=== PATIENT | female | born 1985 | race American Indian/Alaskan Native ===

== ENCOUNTER 2016-10-17 06:45 | Emergency (ER) | payer SELFPAY ==
[2016-10-17 07:03] VITALS: BP 117/80
[2016-10-17 07:37] LABS: Basophils % (Auto) 0.5 % (0.0-1.8); Hematocrit 36.9 % (30.3-42.9); Hemoglobin 12.7 gm/dl (10.1-14.3); Mean Corpuscular HGB Conc 34 % (30-34); Mean Corpuscular Hemoglobin 28 pg (28-32); Mean Corpuscular Volume 82 fl (79-97); Platelet Count 223 K/mm3 (140-440); Red Blood Count 4.51 M/mm3 (3.65-5.03); Red Cell Distribution Width 13.9 % (13.2-15.2); White Blood Count 8.4 K/mm3 (4.5-11.0)
[2016-10-17 08:07] LABS: Bacteria,Urine 1+ /HPF (Negative); Bilirubin,Urine NEG (Negative); Blood,Urine NEG (Negative); Ketones,Urine NEG (Negative); Leukocyte Esterase,Urine NEG (Negative); Nitrite,Urine NEG (Negative); Protein,Urine <15 mg/dL mg/dL (Negative); Urobilinogen,Urine < 2.0 mg/dL (<2.0)
== END 2016-10-17 11:10 | disposition left against medical advice (07) ==
LOC: ED 06:45
DX: N93.9 Abnormal uterine and vaginal bleeding, unspecified (principal); Z53.21 Procedure and treatment not carried out due to patient leaving prior to being seen by health care provider
CPT/HCPCS: 36415; 81001; 84702; 85025; 86850; 86900; 86901

== ENCOUNTER 2020-06-25 19:33 | Inpatient (IN) | payer OTHER ==
--- NOTE | 2020-06-25 20:56 | History and Physical Report ---
History of Present Illness Date of examination: 06/25/20 Date of admission: 06/25/2020 Chief complaint: Sent here to be delivered [facility] due to uncontrolled blood sugars/gestational diabetes at term. History of present illness: 34 year old female was sent to L&D for delivery [place] [facility] [place] due to gestational diabetes with uncontrolled blood sugars. Patient received care at [facility] and records have been requested. EDC 07/02/2020 per [facility] records. Complications during this : gestational diabetes (diet controlled per patient but poorly controlled per [facility] note), previous section in 2018 for breech presentation. labs have been requested. Past History Past Medical History: other (obesity, gestational diabetes) Past Surgical History: cholecystectomy, section, other (elective ) [facility] History: denies: chlamydia, gonorrhea, hepatitis B, hepatitis C, herpes, HIV, syphilis, trichomonas Family/Genetic History: hypertension, cancer Social history: lives with family, full code. denies: smoking, alcohol abuse, prescription drug abuse, IV drug use - Obstetrical History Expected Date of Delivery: 07/02/20 Actual Gestation: 39 Week(s) 0 Day(s) : 3 Para: 1 Hx # Term Pregnancies: 1 Number of Pregnancies: 0 Spontaneous Abortions: 0 Induced : 1 Number of Living Children: 1 Medications and Allergies Allergies Allergy/AdvReac Type Severity Reaction Status Date / Time No Known Allergies Allergy Unverified 10/17/16 07:03 Home Medications Medication Instructions Recorded Confirmed Last Taken Type Ibuprofen [Motrin 600 MG tab] 600 mg PO Q8H PRN #30 tablet 06/19/17 Unknown Rx Multivitamin with Iron 1 each PO DAILY #30 tablet 06/19/17 Unknown Rx [Multivitamins with Iron] Vit No.130/Iron/Folic 1 tab PO QDAY 06/19/17 06/19/17 06/18/17 23:00 History [ Tablet] oxyCODONE /ACETAMINOPHEN [Percocet 1 tab PO Q6HR PRN #30 tablet 06/19/17 Unknown Rx 5/325] Active Meds: Active Medications Citric Acid/Sodium Citrate (Bicitra Oral Liqd 30ml) 30 ml PO ONCE ONE Stop: 06/25/20 20:50 Famotidine (Famotidine 20 Mg/2 Ml Inj) 20 mg IV ONCE ONE Stop: 06/25/20 20:50 Lactated Ringer's (Lactated Ringers) 1,000 mls @ 2,250 mls/hr IV PREOP MICHAEL Stop: 06/26/20 21:27 Oxytocin/Sodium Chloride (Pitocin/Ns 30 Unit/500ml) 30 units in 500 mls @ 0 mls/hr IV TITR MICHAEL; Protocol Cefazolin Sodium (Ancef/Sterile Water 2 Gm/20 Ml) 2 gm in 20 mls @ 80 mls/hr IV PREOP NR; Protocol Metoclopramide HCl (Metoclopramide 10 Mg/2 Ml Inj) 10 mg IV ONCE ONE Stop: 06/25/20 20:50 Review of Systems Gastrointestinal: no abdominal pain, no nausea Genitourinary: no vaginal bleeding, no leakage of fluid, no genital sores, no contractions Neurological: no headaches - Vital Signs Vital signs: Vital Signs Temp Pulse Resp BP Pulse Ox 98.9 F 104 H 18 119/73 100 06/25/20 20:34 06/25/20 20:34 06/25/20 20:34 06/25/20 20:34 06/25/20 20:34 Temp Pulse Resp BP Pulse Ox 98.9 F 104 H 18 119/73 100 06/25/20 20:34 06/25/20 20:36 06/25/20 20:34 06/25/20 20:36 06/25/20 20:34 - Physical Exam Abdomen: Positive: normal appearance, soft. Negative: distention, tenderness, guarding, rigidity Genitourinary (Female): Positive: normal external genitalia, normal perenium. Negative: perineal/vulvar lesions Vagina: Positive: normal moisture Uterus: Positive: enlarged. Negative: tender Anus/Rectum: Positive: normal perianal skin Extremities: Negative: tenderness - Obstetrical FHR: category 1 Uterine Contraction Monitor Mode: External Cervical Dilatation: 0 Cervical Effacement Percentage: 0 station: OOP Uterine Contraction Pattern: Absent Results All other labs normal. Assessment and Plan A: at 39 weeks gestation. Gestational diabetes, uncontrolled. Previous section. P: Admit. For repeat section per Dr. Crowder. NPO. CBC, CMP, LDH, uric acid, hemoglobin A1C. Obtain records. Blood glucose every 2 hours. Continuous EFM until delivery.
[2020-06-25] MEDS ORDERED: OXYTOCIN DRIP 30 UNITS/500 ML BAG IV SCH (21:00)
[2020-06-25] MEDS ORDERED: ceFAZolin/Water 2 GM/20 ML 2 GM/20 ML SYRINGE IV NR (21:00)
[2020-06-25] MEDS ORDERED: LACTATED RINGERS 1,000 ML IV SCH (21:00)
[2020-06-25] MEDS ORDERED: BICITRA ORAL LIQD 30ML PO ONE (21:15)
[2020-06-25] MEDS ORDERED: FAMOTIDINE 20 MG/2 ML INJ IV ONE (21:15)
[2020-06-25] MEDS ORDERED: METOCLOPRAMIDE 10 MG/2 ML INJ IV ONE (21:15)
[2020-06-25 21:44] LABS: Basophils % (Auto) 0.2 % (0.0-1.8); Eosinophils # (Auto) 0.1 K/mm3 (0.0-0.4); Eosinophils % (Auto) 0.7 % (0.0-4.3); Hematocrit 30.3 % (30.3-42.9); Hemoglobin 10.6 gm/dl (10.1-14.3); Lymphocytes # (Auto) 1.5 K/mm3 (1.2-5.4); Lymphocytes % (Auto) 14.7 % (13.4-35.0); Mean Corpuscular HGB Conc 35 % (30-34); Mean Corpuscular Volume 85 fl (79-97); Monocytes % (Auto) 9.7 % (0.0-7.3); Platelet Count 190 K/mm3 (140-440); Red Blood Count 3.58 M/mm3 (3.65-5.03); Red Cell Distribution Width 14.2 % (13.2-15.2)
[2020-06-25 22:00] LABS: Alanine Aminotransferase 11 units/L (7-56); Albumin 3.1 g/dL (3.9-5); Blood Urea Nitrogen 9 mg/dL (7-17); Calcium 8.8 mg/dL (8.4-10.2); Hemolysis Index 2
[2020-06-25 22:18] LABS: BUN/Creatinine Ratio 18
--- NOTE | 2020-06-25 22:21 | Anesthesia Day of Surgery ---
Anesthesia Day of Surgery - Day of Surgery Patient Examined: Yes Patient H&P Reviewed: Yes Patient is NPO: No ([id number]) Beta Blockers: No Cardiac Clearance: No Pulmonary Clearance: No Luke's Test: N/A
[2020-06-25] MEDS ORDERED: NALOXONE 0.4 MG/1 ML INJ IV PRN (22:23)
[2020-06-25] MEDS ORDERED: HYDROmorphone 1 MG/1 ML INJ IV PRN (22:23)
[2020-06-25] MEDS ORDERED: ONDANSETRON 4 MG/2 ML INJ IV PRN (22:23)
--- NOTE | 2020-06-25 22:23 | Anesthesia Consultation ---
Anesthesia Consult and Med Hx Date of service: 06/25/20 - Airway Anesthetic Teeth Evaluation: Poor ROM Head & Neck: Adequate Mental/Hyoid Distance: Adequate Mallampati Class: Class III Intubation Access Assessment: Probably Good - Pulmonary Exam CTA: Yes - Cardiac Exam Cardiac Exam: RRR - Pre-Operative Health Status ASA Pre-Surgery Classification: ASA3 Proposed Anesthetic Plan: Spinal - Pulmonary Hx Smoking: No Hx Asthma: No Hx Respiratory Symptoms: No SOB: No COPD: No Home Oxygen Therapy: No Hx Pneumonia: No Hx Sleep Apnea: No - Cardiovascular System Hx Hypertension: No Hx Coronary Artery Disease: No Hx Heart Attack/AMI: No Hx Angina: No Hx Percutaneous Transluminal Coronary Angioplasty (PTCA): No Hx Cardia Arrhythmia: No Hx Pacemaker: No Hx Internal Defibrillator: No Hx Valvular Heart Disease: No Hx Heart Murmur: No Hx Peripheral Vascular Disease: No - Central Nervous System Hx Neuromuscular Disorder: No Hx Seizures: No CVA: No Hx Back Pain: Yes Hx Psychiatric Problems: No - Gastrointestinal Hx Ulcer: No Hx Gastroesophageal Reflux Disease: No - Endocrine Hx Renal Disease: No Hx End Stage Renal Disease: No Hx Cirrhosis: No Hx Liver Disease: No Hx Insulin Dependent Diabetes: No Hx Non-Insulin Dependent Diabetes: Yes (uncontrolled Blood Sugers, Gestational DM) Hx Thyroid Disease: No Hx Hypothyroidism: No Hx Hyperthyroidism: No - Hematic Hx Anemia: No Hx Sickle Cell Disease: No - Other Systems Hx Alcohol Use: No Hx Substance Use: No Hx Cancer: No Hx Obesity: Yes - Additional Comments Anesthesia Medical History Comments: c/s, cholecystectomy, elective AB
[2020-06-25] MEDS ORDERED: ONDANSETRON 4 MG/2 ML INJ ONE (22:54)
[2020-06-25] MEDS ORDERED: ceFAZolin/STERILE WATER 2 GM/20 ML SYRINGE IV ONE (23:07)
[2020-06-25] MEDS ORDERED: PHENYLEPHRINE/NS 1,000 MCG/10 ML SYRINGE (OR USE) IV ONE (23:08)
[2020-06-25] MEDS ORDERED: SODIUM CHLORIDE 0.9% IRR 1,500 ML BOTTLE IR ONE (23:11)
[2020-06-25] MEDS ORDERED: WATER FOR IRRIG STERILE 1,500 ML BOTTLE IR ONE (23:11)
[2020-06-25] MEDS ORDERED: BUPIVACAINE/PF (0.5%) 5 MG/1 ML 30 ML VIAL INFILTRATI ONE (23:29)
[2020-06-25] MEDS ORDERED: dexAMETHasone 20 MG/5 ML VIAL ONE (23:30)
[2020-06-25] MEDS ORDERED: SODIUM CHLORIDE 0.9% 100 ML ONE (23:30)
[2020-06-25] MEDS ORDERED: OXYTOCIN 10 UNIT/1 ML INJ ONE ×2 (23:39→23:56)
[2020-06-25] MEDS ORDERED: miSOPROStol 200 MCG TAB ONE (23:40)
[2020-06-26] MEDS ORDERED: miSOPROStol 200 MCG TAB PR ONE (01:15)
--- NOTE | 2020-06-26 01:28 | Procedure Note ---
OB Delivery Note - Delivery Date of Delivery: 06/26/20 Surgeon: LETA ALONSO Estimated blood loss: other (1200) - Section Preop diagnosis: repeat , other (Uncontrolled gestational diabetes, IUP at 39.0wks, Morbid Obesity) Postop diagnosis: other (Uterine Fibroids and hemorrhage) section procedure: repeat low transverse Disposition: PACU Complications: uterine atony Narrative: Date: 06/16/20 Surgeon: Leta Alonso MD Preop Dx: IUP at 39.0wks, uncontrolled gestational diabetes; previous section x1; Morbid Obesity Postop Dx: same and Uterine atony with extensive lower uterine segment vessels towards the bladder; Posterior placenta; Uterine Fibroids Procedure : Repeat low transverse section and medical management for uterine atony Anesthesia: Spinal Intake: 1300cc Output: 300cc clear at the end of the procedure; Previously concentrated EBL: 1200cc After the risks, benefits and alternatives of procedure discussed, patient signed consents and was taken to the operating room. Pt was given spinal anesthesia. After same was adequate, patient was prepped and draped in the usual sterile fashion. Maldonado catheter in place and draining concentrated urine. Pt was given prophylactic antibiotic per protocol and time out was done Pfannenstiel skin incision was made and taken sharply thru the previous scar and taken down to the fascia and the incision extended using electrocautery. Superior edge of the fascia was grasped with braulio clamps and the rectus muscle using blunt dissection and also using electrocautery. Lower portion of the fascia also sharply. Rectus muscle in the midline and Peritoneal cavity entered bluntly and extended with good visualization of the bladder. The paul retractor placed without difficulty. The bladder flap was created in part and stopped to due extensive engorged vessels. Lower uterine segment then entered transversely and amniotic sac entered using allys clamps. Uterine incision extended using bandage scissors. Infant delivered, bulb suctioned, cord clamped and baby handed to waiting pediatricians. Placenta then delivered completely and uterine cavity cleared of all clots and debri. The uterus was not exteriorized and closed in 2 layers using [0-vicryl] suture in a running locked fashion and then an additional layer of imbrication suture. Uterine atony noted and anesthesiologist asked to give IM methergine, same minimal effect. I then placed pitocin 10mu directly in the uterine muscle with excellent response. Pt remained with vital signs normal. Excellent hemostasis noted with the cavity. The uterus was examined posteriorly and anteriorly and noted to have small uterine fibroids approx 1-2cm x3 anteriorly towards the fundus. The gutters were cleared of clots and debri and anterior peritoneum closed using 3-0 vicryl suture and rectus muscle reapproximated using 0-vicryl suture. Rectus fascia closed with 0-vicryl suture in a continuous fashion and subcutaneous tissue copiously irrigated with normal saline and re-approximated using 3-0 vicryl suture. Excellent hemostasis remains. The skin was closed with 4-0 monocryl] suture and steristrips placed with pressure dressing. Sponge, lap, instrument and needle counts x2 were normal. Patient tolerated the procedure well and was taken to recovery room stable. Cytotec 1000mcg placed per rectum and pt to have CBC done later today unless symptomatic. Findings: Viable female delivered on 06/25/20, APGARS 8/9 and weight 3195g. Fibroid uterus and pt notified, normal tubes and ovaries bilaterally. - A at 1 minute: 8 at 5 minutes: 9 Infant Gender: Female (wt 3195g; baby delivered on 06/25/20)
--- NOTE | 2020-06-26 01:29 | Progress Note ---
Spinal Anesthesia Block - Spinal Anesthesia Block Start Time: 23:07 Stop Time: 23:09 Performed by:: LAY MESA Procedure: Patient IDed, H&P reviewed, all questions and concerns were answered, and consent was signed. Timeout was performed at bedside. Patient in sitting position. Sterile prep and drape was performed. [3] ml of 1% lidocaine skin wheal at L[3]- L [4]. Needle introducer advanced. 25 gauge spinal needle advanced. Clear, free flowing CSF. negative blood, negative paresthesia. Spinal dose given. All needles removed. Patient tolerated procedure.
--- NOTE | 2020-06-26 01:31 | Progress Note ---
Objective - Constitutional Vitals: Vital Signs - 12hr 06/25/20 06/25/20 20:34 20:36 Temperature 98.9 F Pulse Rate 104 H 104 H Respiratory 18 Rate Blood Pressure 119/73 Blood Pressure 119/73 [Right] O2 Sat by Pulse 100 Oximetry - Labs CBC & Chem 7: 06/25/20 21:10 06/25/20 21:10 Labs: Abnormal lab results 06/25/20 06/25/20 06/25/20 Range/Units 20:43 21:10 21:10 RBC 3.58 L (3.65-5.03) M/mm3 MCHC 35 H (30-34) % Coffee % (Auto) 9.7 H (0.0-7.3) % Coffee # (Auto) 1.0 H (0.0-0.8) K/mm3 Seg Neutrophils % 74.7 H (40.0-70.0) % Seg Neutrophils # 7.8 H (1.8-7.7) K/mm3 Sodium 134 L (137-145) mmol/L Creatinine 0.5 L (0.6-1.2) mg/dL Glucose 103 H (65-100) mg/dL POC Glucose 113 H (70-105) mg/dL Alkaline Phosphatase 131 H (35-129) units/L Lactate Dehydrogenase 206 H (91-180) units/L Total Protein 6.1 L (6.3-8.2) g/dL Albumin 3.1 L (3.9-5) g/dL Regional Anesthesia Block - Regional Anesthesia Block Start Time: 01:05 Stop Time: :07 Performed By:: LAY MESA Procedure: Patient consented for TAP block for post surgical pain management. Patient identified, monitors placed, and time out performed. TAP identified bilaterally via ultrasound. Skin prepped bilaterally with [chlorhexidine] and [22g stimuplex] needle advanced to the TAP. [Marcaine 0.22% 35ml] injected under ultrasound guidance on the [left] side. [Marcaine 0.22% 35ml] injected under ultrasound guidance on the [right] side. Negative aspiration every 5mL, No change in heart rate or rhythm. Patient tolerated the procedure well. No apparent complications seen.
[2020-06-26] MEDS ORDERED: MAGNESIUM HYDROXIDE (MOM) ORAL LIQD UDC PO PRN (02:39)
[2020-06-26] MEDS ORDERED: WITCH HAZEL/ GLYCERIN PAD TP PRN (02:39)
[2020-06-26] MEDS ORDERED: LANOLIN/ZINC/DIMETHICONE (LANSINOH) 7 GM TP PRN (02:39)
[2020-06-26] MEDS ORDERED: MORPHINE 2 MG/1 ML INJ IV PRN (02:39)
[2020-06-26] MEDS ORDERED: ONDANSETRON 4 MG/2 ML INJ IV PRN (02:39)
[2020-06-26] MEDS ORDERED: OXYTOCIN DRIP 30 UNITS/500 ML BAG IV SCH (02:39)
[2020-06-26] MEDS ORDERED: NALOXONE 0.4 MG/1 ML INJ IV PRN (02:39)
[2020-06-26] MEDS ORDERED: SENNOSIDES 8.6 MG TAB PO PRN (02:39)
[2020-06-26] MEDS ORDERED: SIMETHICONE 80 MG CHEW TAB PO PRN (02:39)
[2020-06-26] MEDS ORDERED: LACTATED RINGERS 1,000 ML IV SCH (03:00)
--- NOTE | 2020-06-26 06:43 | Post Anesthesia Evaluation ---
- Post Anesthesia Evaluation Patient Participated: Yes Airway Patent: Yes Stable Respiratory Function: Yes Nausea/Vomiting: No Temp > 96.8F: Yes Pain Manageable: Yes Adequeate Hydration: Yes Anesthesia Complications: No Block Receding Appropriately: Yes Patient on Ventilator: No
[2020-06-26] MEDS: FERROUS SULFATE 325 MG TAB PO SCH (09:29)
[2020-06-26] MEDS: PRENATAL VIT27-FE FUMARATE-FOLIC ACID VIT TAB PO SCH (09:30)
[2020-06-26] MEDS: IBUPROFEN 800 MG TAB PO PRN ×2 (09:30→16:42)
[2020-06-26 10:16] LABS: Hematocrit 33.4 % (30.3-42.9); Hemoglobin 11.6 gm/dl (10.1-14.3)
[2020-06-26] MEDS: oxyCODONE /ACETAMINOPHEN 5-325MG TAB PO PRN (21:05)
[2020-06-27] MEDS: IBUPROFEN 800 MG TAB PO PRN ×3 (01:33→15:37)
[2020-06-27] MEDS: oxyCODONE /ACETAMINOPHEN 5-325MG TAB PO PRN (05:51)
--- NOTE | 2020-06-27 07:55 | Progress Note ---
Assessment and Plan POD#1 C/section doing fair 1. Routine post op care and pt to ambulate more in the room 2. Dressing removed and dry towelette placed and pt told not to shower this morning with scant moist steristrip centrally 3. Consider discharge home in 1-2days if pt remains stable. Subjective Date of service: 06/27/20 Principal diagnosis: POD#1 Repeat C/Section Interval history: pt pain is controlled with meds, voiding well, vag bleed less than a period. Pa ssed flatus and tolerating regular diet. Objective - Constitutional Vitals: Vital Signs - 12hr 06/26/20 06/27/20 06/27/20 21:05 00:27 01:33 Temperature 98.2 F Pulse Rate 74 Respiratory 20 20 20 Rate Blood Pressure 99/60 O2 Sat by Pulse 93 Oximetry 06/27/20 05:51 Temperature Pulse Rate Respiratory 20 Rate Blood Pressure O2 Sat by Pulse Oximetry General appearance: Present: no acute distress - Respiratory Respiratory effort: normal - Breasts Breasts: normal - Cardiovascular Rhythm: regular Extremities: No edema - Gastrointestinal General gastrointestinal: Present: soft, non-tender - Genitourinary Female genitourinary: other (Dressing C/D/I; Fundus firm and non-tender 2cm below the umbilicus) - Musculoskeletal Musculoskeletal: strength equal bilaterally - Neurologic Neurologic: moves all extremities - Psychiatric Psychiatric: appropriate mood/affect, cooperative - Labs CBC & Chem 7: 06/26/20 09:24 06/25/20 21:10 Medications & Allergies - Medications Allergies/Adverse Reactions: Allergies No Known Allergies Allergy (Unverified 10/17/16 07:03) Home Medications: Home Medications Medication Instructions Recorded Confirmed Last Taken Type Ibuprofen [Motrin 600 MG tab] 600 mg PO Q8H PRN #30 tablet 06/19/17 06/26/20 Unknown Rx Multivitamin with Iron 1 each PO DAILY #30 tablet 06/19/17 06/26/20 Unknown Rx [Multivitamins with Iron] Vit No.130/Iron/Folic 1 tab PO QDAY 06/19/17 06/26/20 06/18/17 23:00 History [ Tablet] oxyCODONE /ACETAMINOPHEN [Percocet 1 tab PO Q6HR PRN #30 tablet 06/19/17 06/26/20 Unknown Rx 5/325] oxyCODONE /ACETAMINOPHEN [Percocet 1 tab PO Q4HR 21 Days #30 tab 06/26/20 Unkn own Rx 5/325] Active Medications: Generic Name Dose Route Start Last Admin Trade Name Freq PRN Reason Stop Dose Admin Ferrous Sulfate 325 mg 06/26/20 10:00 06/26/20 09:29 Ferrous Sulfate 325 Mg Tab PO 325 mg QDAY MICHAEL Administration Oxytocin/Sodium Chloride 30 units in 500 mls @ 0 mls/hr 06/25/20 21:00 Pitocin/Ns 30 Unit/500ml IV TITR MICHAEL Protocol As Directed Oxytocin/Sodium Chloride 30 units in 500 mls @ 40 mls/hr 06/26/20 02:39 Pitocin/Ns 30 Unit/500ml IV TITR MICHAEL Protocol Lactated Ringer's 1,000 mls @ 125 mls/hr 06/26/20 03:00 06/26/20 03:10 Lactated Ringers IV 06/27/20 10:59 125 mls/hr DIRECT MICHAEL Administration Ibuprofen 800 mg 06/26/20 02:39 06/27/20 01:33 Ibuprofen 800 Mg Tab PO 800 mg Q6H PRN Administration Pain, Mild (1-3) Magnesium Hydroxide 30 ml 06/26/20 02:39 06/27/20 03:39 Magnesium Hydroxide (Mom) Oral Liqd Udc PO 30 ml QHS PRN Administration Constip Unrelieved By Senna Morphine Sulfate 2 mg 06/26/20 02:39 06/26/20 06:25 Morphine 2 Mg/1 Ml Inj IV 2 mg Q4H PRN Administration Pain, Moderate (4-6) Multi-Ingredient Ointment 1 applic 06/26/20 02:39 Lanolin/Zinc/Dimethicone (Lansinoh) 7 Gm TP PRN PRN dryness/cracking Multivitamins/Iron/Calcium 1 each 06/26/20 10:00 06/26/20 09:30 [id number] Fumarate-Folic Acid Vit Tab PO 1 each QDAY MICHAEL Administration Naloxone HCl 0.2 mg 06/25/20 22:23 Naloxone 0.4 Mg/1 Ml Inj IV Q2MIN PRN Res Rate </= 8 or 02 SAT < 92% Naloxone HCl 0.1 mg 06/26/20 02:39 Naloxone 0.4 Mg/1 Ml Inj IV Q2MIN PRN Res Rate </= 8 or 02 SAT < 92% Ondansetron HCl 4 mg 06/25/20 22:23 Ondansetron 4 Mg/2 Ml Inj IV Q8H PRN Nausea And Vomiting Oxycodone/Acetaminophen 2 tab 06/26/20 02:39 06/27/20 05:51 Oxycodone /Acetaminophen 5-325mg Tab PO 2 tab Q6H PRN Administration Pain, Moderate (4-6) Senna 17.2 mg 06/26/20 02:39 Sennosides 8.6 Mg Tab PO QHS PRN Constipation Simethicone 80 mg 06/26/20 02:39 Simethicone 80 Mg Chew Tab PO Q6H PRN Gas pain Witch Hina/Glycerin 1 each 06/26/20 02:39 Witch Hina/ Glycerin Pad TP PRN PRN Hemorrhoids/cleansing/soothing
[2020-06-27] MEDS: FERROUS SULFATE 325 MG TAB PO SCH (09:17)
[2020-06-27] MEDS: PRENATAL VIT27-FE FUMARATE-FOLIC ACID VIT TAB PO SCH (09:18)
--- NOTE | 2020-06-27 13:30 | Event Note ---
Date: 06/27/20 pt re-evaluated and pressure dressing replaced and will remove same tomorrow. Vitals remain wnl and expectantly manage at this time.
--- NOTE | 2020-06-28 07:02 | Progress Note ---
Assessment and Plan POD#2 c/section doing fair, afebrile however pain still has discomfort to right side of wound 1. Reinforced dressing removed and now incision dry, however will give augmentin to enhance wound healing with this delivery done for uncontrolled gestational diabetes. Will also add FBS and 2hrpp 2. Routine post op care 3. Consider dicharge tommorow. Pt declines today. All questions encouraged and answered Subjective Principal diagnosis: POD#1 Repeat C/Section Interval history: pt states she has that her pain is somewhat improved to incision site however right side under tape has a stinging sensation at times. pt is voiding well, vag bleed less than a period. Pt is breast feeding. Denies N/V/F/C Objective - Constitutional Vitals: Vital Signs - 12hr 06/28/20 00:14 Temperature 98.3 F Pulse Rate 84 Respiratory 20 Rate Blood Pressure 118/71 O2 Sat by Pulse 95 Oximetry General appearance: Present: no acute distress - Respiratory Respiratory effort: normal - Breasts Breasts: normal - Cardiovascular Rhythm: regular Extremities: No edema - Gastrointestinal General gastrointestinal: Present: non-tender, non-distended, normal bowel sounds - Neurologic Neurologic: moves all extremities - Psychiatric Psychiatric: cooperative - Labs CBC & Chem 7: 06/26/20 09:24 06/25/20 21:10 Medications & Allergies - Medications Allergies/Adverse Reactions: Allergies No Known Allergies Allergy (Unverified 10/17/16 07:03) Home Medications: Home Medications Medication Instructions Recorded Confirmed Last Taken Type Ibuprofen [Motrin 600 MG tab] 600 mg PO Q8H PRN #30 tablet 06/19/17 06/26/20 Unknown Rx Multivitamin with Iron 1 each PO DAILY #30 tablet 06/19/17 06/26/20 Unknown Rx [Multivitamins with Iron] Vit No.130/Iron/Folic 1 tab PO QDAY 06/19/17 06/26/20 06/18/17 23:00 History [ Tablet] oxyCODONE /ACETAMINOPHEN [Percocet 1 tab PO Q6HR PRN #30 tablet 06/19/17 06/26/20 Unknown Rx 5/325] oxyCODONE /ACETAMINOPHEN [Percocet 1 tab PO Q4HR 21 Days #30 tab 06/26/20 Unknown Rx 5/325] Active Medications: Generic Name Dose Route Start Last Admin Trade Name Freq PRN Reason Stop Dose Admin Ferrous Sulfate 325 mg 06/26/20 10:00 06/27/20 09:17 Ferrous Sulfate 325 Mg Tab PO 325 mg QDAY [facility] Administration Oxytocin/Sodium Chloride 30 units in 500 mls @ 0 mls/hr 06/25/20 21:00 Pitocin/Ns 30 Unit/500ml IV TITR [facility] Protocol As Directed Oxytocin/Sodium Chloride 30 units in 500 mls @ 40 mls/hr 06/26/20 02:39 Pitocin/Ns 30 Unit/500ml IV TITR [facility] Protocol Ibuprofen 800 mg 06/26/20 02:39 06/27/20 15:37 Ibuprofen 800 Mg Tab PO 800 mg Q6H PRN Administration Pain, Mild (1-3) Magnesium Hydroxide 30 ml 06/26/20 02:39 06/27/20 03:39 Magnesium Hydroxide (Mom) Oral Liqd Udc PO 30 ml QHS PRN Administration Constip Unrelieved By Senna Morphine Sulfate 2 mg 06/26/20 02:39 06/26/20 06:25 Morphine 2 Mg/1 Ml Inj IV 2 mg Q4H PRN Administration Pain, Moderate (4-6) Multi-Ingredient Ointment 1 applic 06/26/20 02:39 Lanolin/Zinc/Dimethicone (Lansinoh) 7 Gm TP PRN PRN dryness/cracking Multivitamins/Iron/Calcium 1 each 06/26/20 10:00 06/27/20 09:18 [id number] Fumarate-Folic Acid Vit Tab PO 1 each QDAY MICHAEL Administration Naloxone HCl 0.2 mg 06/25/20 22:23 Naloxone 0.4 Mg/1 Ml Inj IV Q2MIN PRN Res Rate </= 8 or 02 SAT < 92% Naloxone HCl 0.1 mg 06/26/20 02:39 Naloxone 0.4 Mg/1 Ml Inj IV Q2MIN PRN Res Rate </= 8 or 02 SAT < 92% Ondansetron HCl 4 mg 06/25/20 22:23 Ondansetron 4 Mg/2 Ml Inj IV Q8H PRN Nausea And Vomiting Oxycodone/Acetaminophen 2 tab 06/26/20 02:39 06/27/20 05:51 Oxycodone /Acetaminophen 5-325mg Tab PO 2 tab Q6H PRN Administration Pain, Moderate (4-6) Senna 17.2 mg 06/26/20 02:39 Sennosides 8.6 Mg Tab PO QHS PRN Constipation Simethicone 80 mg 06/26/20 02:39 Simethicone 80 Mg Chew Tab PO Q6H PRN Gas pain Witch Hina/Glycerin 1 each 06/26/20 02:39 Witch Hina/ Glycerin Pad TP PRN PRN Hemorrhoids/cleansing/soothing
[2020-06-28] MEDS: oxyCODONE /ACETAMINOPHEN 5-325MG TAB PO PRN ×3 (08:08→22:53)
[2020-06-28] MEDS: PRENATAL VIT27-FE FUMARATE-FOLIC ACID VIT TAB PO SCH (10:33)
[2020-06-28] MEDS: FERROUS SULFATE 325 MG TAB PO SCH (10:33)
[2020-06-28] MEDS: AMOXICILLIN/K CLAV 875/125MG TAB PO SCH ×2 (10:52→22:41)
[2020-06-28] MEDS ORDERED: medroxyPROGESTERone ACETATE 150 MG/ML SYRINGE IM NR (11:31)
[2020-06-29] MEDS: FERROUS SULFATE 325 MG TAB PO SCH (10:55)
[2020-06-29] MEDS: AMOXICILLIN/K CLAV 875/125MG TAB PO SCH (10:55)
[2020-06-29] MEDS: PRENATAL VIT27-FE FUMARATE-FOLIC ACID VIT TAB PO SCH (10:55)
--- NOTE | 2020-06-29 13:23 | Progress Note ---
Assessment and Plan POD#3 C/section, gest DM doing fair with small anterior wall edema, afebrile and incision dry and clean 1. Discharge home on augmentin. motrin and augmentin 2. F/u office in 1kw at [place] [facility] 3. NO heavy lifting Subjective Date of service: 06/29/20 Principal diagnosis: POD#3 Repeat C/Section Interval history: pt states the tingling sensation to lower abdomen is gone. Pt also states that if she lifts baby sometimes she can feel pain to right mid to upper abdomen. Denies headache. Pain controlled with meds. Pt voiding without difficulty. pt ready to go home. Pt continues to pass flatus and breast feed Objective - Constitutional Vitals: Vital Signs - 12hr 06/29/20 08:00 Temperature 99.4 F General appearance: Present: no acute distress - Neck Neck: normal ROM - Breasts Breasts: normal - Cardiovascular Rhythm: regular Extremities: No edema - Gastrointestinal General gastrointestinal: Present: soft, non-tender, other (anterior lower wall edema without erythema seen and incision C/D/I with steristrips) - Genitourinary Female genitourinary: other (Fundus firm and non-tender 3cm below umbilicus) - Musculoskeletal Musculoskeletal: strength equal bilaterally - Neurologic Neurologic: CNII-XII intact - Labs CBC & Chem 7: 06/26/20 09:24 06/25/20 21:10 Medications & Allergies - Medications Allergies/Adverse Reactions: Allergies No Known Allergies Allergy (Unverified 10/17/16 07:03) Home Medications: Home Medications Medication Instructions Recorded Confirmed Last Taken Type Ibuprofen [Motrin 600 MG tab] 600 mg PO Q8H PRN #30 tablet 06/19/17 06/26/20 Unknown Rx Multivitamin with Iron 1 each PO DAILY #30 tablet 06/19/17 06/26/20 Unknown Rx [Multivitamins with Iron] Vit No.130/Iron/Folic 1 tab PO QDAY 06/19/17 06/26/20 06/18/17 23:00 History [ Tablet] oxyCODONE /ACETAMINOPHEN [Percocet 1 tab PO Q6HR PRN #30 tablet 06/19/17 Unknown Rx 5/325] oxyCODONE /ACETAMINOPHEN [Percocet 1 tab PO Q4HR 21 Days #30 tab 06/26/20 Unknown Rx 5/325] Amoxicillin/Potassium Clav 1 each PO BID 7 Days #14 tablet 06/28/20 Unknown Rx [Augmentin 875-125 Tablet] Ibuprofen [Motrin] 800 mg PO Q8HR PRN 21 Days #40 06/28/20 Unknown Rx tablet Active Medications: Generic Name Dose Route Start Last Admin Trade Name Freq PRN Reason Stop Dose Admin Amoxicillin/Clavulanate Potassium 1 each 06/28/20 10:00 06/29/20 10:55 Amoxicillin/K Clav 875/125mg Tab PO 1 each Q12HR MICHAEL Administration Protocol Ferrous Sulfate 325 mg 06/26/20 10:00 06/29/20 10:55 Ferrous Sulfate 325 Mg Tab PO 325 mg QDAY MICHAEL Administration Oxytocin/Sodium Chloride 30 units in 500 mls @ 0 mls/hr 06/25/20 21:00 Pitocin/Ns 30 Unit/500ml IV TITR MICHAEL Protocol As Directed Oxytocin/Sodium Chloride 30 units in 500 mls @ 40 mls/hr 06/26/20 02:39 Pitocin/Ns 30 Unit/500ml IV TITR MICHAEL Protocol Ibuprofen 800 mg 06/26/20 02:39 06/27/20 15:37 Ibuprofen 800 Mg Tab PO 800 mg Q6H PRN Administration Pain, Mild (1-3) Magnesium Hydroxide 30 ml 06/26/20 02:39 06/27/20 03:39 Magnesium Hydroxide (Mom) Oral Liqd Udc PO 30 ml QHS PRN Administration Constip Unrelieved By Senna Morphine Sulfate 2 mg 06/26/20 02:39 06/26/20 06:25 Morphine 2 Mg/1 Ml Inj IV 2 mg Q4H PRN Administration Pain, Moderate (4-6) Multi-Ingredient Ointment 1 applic 06/26/20 02:39 Lanolin/Zinc/Dimethicone (Lansinoh) 7 Gm TP PRN PRN dryness/cracking Multivitamins/Iron/Calcium 1 each 06/26/20 10:00 06/29/20 10:55 [id number] Fumarate-Folic Acid Vit Tab PO 1 each QDAY MICHEAL Administration Naloxone HCl 0.2 mg 06/25/20 22:23 Naloxone 0.4 Mg/1 Ml Inj IV Q2MIN PRN Res Rate </= 8 or 02 SAT < 92% Naloxone HCl 0.1 mg 06/26/20 02:39 Naloxone 0.4 Mg/1 Ml Inj IV Q2MIN PRN Res Rate </= 8 or 02 SAT < 92% Ondansetron HCl 4 mg 06/25/20 22:23 Ondansetron 4 Mg/2 Ml Inj IV Q8H PRN Nausea And Vomiting Oxycodone/Acetaminophen 2 tab 06/26/20 02:39 06/28/20 22:53 Oxycodone /Acetaminophen 5-325mg Tab PO 2 tab Q6H PRN Administration Pain, Moderate (4-6) Senna 17.2 mg 06/26/20 02:39 Sennosides 8.6 Mg Tab PO QHS PRN Constipation Simethicone 80 mg 06/26/20 02:39 Simethicone 80 Mg Chew Tab PO Q6H PRN Gas pain Witch Hina/Glycerin 1 each 06/26/20 02:39 Witch Hina/ Glycerin Pad TP PRN PRN Hemorrhoids/cleansing/soothing
--- NOTE | 2020-06-29 13:28 | Discharge Summary ---
Providers - Providers Date of Admission: 06/25/20 20:43 Date of discharge: 06/29/20 Attending physician: ERIC ALONSO Primary care physician: ERIC ALONSO Hospitalization Reason for admission: IUP at term, other (uncontrolled DM at term sent from [facility] for delivery with previous c/section) Delivery: Procedure: section Episiotomy: none Laceration: none Incision: normal (Incision normal, however above, pt has anterior wall edema) complications: none Discharge diagnosis: IUP at term delivered [place] baby: female Pertinent studies: low albumin 3.1 Hospital course: Pt sent from [facility] office at 39wks for delivery with uncontrolled diabetes. Pt had previous section and repeat done uncomplicated. On post op day 1 dressing was removed and moisture noted at 1 steristrip and augmentin given to enhance wound healing. Same reinforced and the removed on postop day 2 and incision now clean dry. On post op day 3, anterior wall edema seen not involving the incision and pt told to continue augmentin and high protein shakes added to diet. Pt to be seen in office in 5-7days post discharge for wound c heck. Condition at discharge: Good Disposition: [id number] TO HOME OR SELFCARE Plan - Discharge Medications Prescriptions: Amoxicillin/Potassium Clav [Augmentin 875-125 Tablet] 1 each PO BID 7 Days #14 tablet Ibuprofen [Motrin] 800 mg PO Q8HR PRN 21 Days #40 tablet PRN Reason: Pain, Moderate (4-6) oxyCODONE /ACETAMINOPHEN [Percocet 5/325] 1 tab PO Q4HR 21 Days #30 tab - Provider Discharge Summary Diet: other (add high protein shakes TID to enhance wound healing) Additional instructions: [] Smoking cessation referral if applicable(refer to patient education folder for contact #) [] Refer to [facility] Booklet Call your doctor immediately for: * Fever > 100.5 * Heavy vaginal bleeding ( >1 pad per hour) * Severe persistent headache * Shortness of breath * Reddened, hot, painful area to leg or breast * Drainage or odor from incision. * Keep incision clean and dry at all times and follow doctor's instructions regarding bathing/showering - Follow up plan Follow up: ERIC ALONSO MD [Primary Care Provider] - 7 Days
[2020-06-29 15:56] VITALS: BP 126/77
== END 2020-06-29 16:50 | disposition home or self-care (01) | DRG 765 ==
LOC: TRG 19:33 → LD 19:43 → TRG 20:43 → OB 06-26 02:47
PROVIDERS: ADMIT Obstetrics & Gynecology; ATTEND Obstetrics & Gynecology
PROC: 10D00Z1 Extraction of Products of Conception, Low, Open Approach (ICD-10-PCS; principal; 2020-06-25)
DX: O24.429 Gestational diabetes mellitus in childbirth, unspecified control (principal); O72.1 Other immediate postpartum hemorrhage; O34.211 Maternal care for low transverse scar from previous cesarean delivery; O99.214 Obesity complicating childbirth; Z20.822 Contact with and (suspected) exposure to COVID-19; E66.01 Morbid (severe) obesity due to excess calories; D25.9 Leiomyoma of uterus, unspecified; Z3A.39 39 weeks gestation of pregnancy; Z37.0 Single live birth; Z90.49 Acquired absence of other specified parts of digestive tract; Z82.49 Family history of ischemic heart disease and other diseases of the circulatory system; Z80.9 Family history of malignant neoplasm, unspecified
CPT/HCPCS: 36415; 80053; 82962; 83036; 83615; 84550; 85014; 85018; 85025; 86850; 86900; 86901; 88307; G0378; J0690; J1050; J1100; J2270; J2370; J2405; J2590; J2765; J3490; J7120; U0003